=== PATIENT | male | born 1940 | race Caucasian/White ===

== ENCOUNTER 2023-10-13 13:32 | Inpatient (IN) ==
[2023-10-13 14:22] LABS: POC Calcium, Ionized 1.09 (1.16-1.32); POC Creatinine 1.4 (0.6-1.2); POC Potassium 3.8 (3.3-5.1)
[2023-10-13 15:24] LABS: Basophils # (Auto) 0.05 K/mcL (0.00-0.30); Basophils % (Auto) 0.7 % (0.0-2.0); Eosinophils # (Auto) 0.08 K/mcL (0.00-0.70); Eosinophils % (Auto) 1.1 % (0.0-7.0); Hematocrit 30.6 % (40.1-51.0); Hemoglobin 8.8 g/dL (13.7-17.5); Lymphocytes # (Auto) 1.28 K/mcL (1.50-4.80); Lymphocytes % (Auto) 18.3 % (15.5-49.0); Mean Cell Volume 89.2 fL (80.0-100.0); Mean Corpuscular HGB Conc 28.8 g/dL (31.0-36.0); Mean Platelet Volume 11.2 fL (8.8-12.5); Monocytes # (Auto) 0.52 K/mcL (0.10-0.90); Monocytes % (Auto) 7.4 % (1.0-12.0); Neutrophils % (Auto) 72.2 % (38.0-78.0); Platelet Count 249 K/mcL (140-440); RBC 3.43 M/mcL (4.63-6.08); Red Cell Distribution Width 16.6 % (11.5-14.5)
[2023-10-13] MEDS ORDERED: FUROSEMIDE 40 MG/4 ML VIAL IV ONE (16:11)
[2023-10-13] MEDS ORDERED: IPRATROPIUM/ALBUTEROL 3 ML AMPUL.NEB NEB ONE (16:11)
[2023-10-13] MEDS ORDERED: traMADol 50 MG TABLET PO PRN (17:33)
[2023-10-13] MEDS ORDERED: ONDANSETRON 4 MG/2 ML VIAL IV PRN (18:06)
[2023-10-13] MEDS ORDERED: traZODone HCL 50 MG TABLET PO PRN (18:06)
[2023-10-13] MEDS ORDERED: IPRATROPIUM/ALBUTEROL 3 ML AMPUL.NEB NEB PRN (18:06)
[2023-10-13] MEDS ORDERED: ACETAMINOPHEN 325 MG TABLET PO PRN (18:06)
[2023-10-13] MEDS ORDERED: REMDESIVIR 200 MG in 0.9 % SODIUM CHLORIDE 250 ML IV SCH (18:06)
[2023-10-13 19:35] LABS: Iron 24 ug/dL (61-157)
[2023-10-13 19:48] LABS: Ferritin 107.8 ng/mL (30.0-400.0)
[2023-10-13] MEDS: HEPARIN 5,000 UNIT/ML VIAL SQ SCH (22:07)
[2023-10-13] MEDS: ATORVASTATIN 40 MG TABLET PO SCH (22:08)
[2023-10-13] MEDS: MOMETASONE INH SCH (22:09)
[2023-10-13] MEDS: SENNOSIDES 1 TABLET PO SCH (22:09)
[2023-10-13] MEDS: DOCUSATE SODIUM 100 MG CAPSULE PO SCH (22:09)
[2023-10-13] MEDS: 0.9 % SODIUM CHLORIDE 10 ML SYRINGE IV SCH (22:12)
[2023-10-14 06:50] LABS: Basophils # (Auto) 0.04 K/mcL (0.00-0.30); Basophils % (Auto) 0.8 % (0.0-2.0); Eosinophils # (Auto) 0.12 K/mcL (0.00-0.70); Eosinophils % (Auto) 2.5 % (0.0-7.0); Hematocrit 25.6 % (40.1-51.0); Hemoglobin 7.3 g/dL (13.7-17.5); Lymphocytes # (Auto) 0.93 K/mcL (1.50-4.80); Mean Cell Volume 87.4 fL (80.0-100.0); Mean Corpuscular HGB Conc 28.5 g/dL (31.0-36.0); Mean Platelet Volume 11.4 fL (8.8-12.5); Monocytes # (Auto) 0.39 K/mcL (0.10-0.90); Neutrophils % (Auto) 69.5 % (38.0-78.0); Platelet Count 197 K/mcL (140-440); RBC 2.93 M/mcL (4.63-6.08); Red Cell Distribution Width 16.7 % (11.5-14.5); WBC 4.9 K/mcL (4.5-11.0)
[2023-10-14] MEDS: 0.9 % SODIUM CHLORIDE 10 ML SYRINGE IV SCH ×3 (07:13→21:27)
[2023-10-14] MEDS: LEVOTHYROXINE 50 MCG TABLET PO SCH (07:13)
[2023-10-14 07:18] LABS: ALT/SGPT 12 U/L (<40); AST/SGOT 25 U/L (<40); Albumin 2.7 gm/dL (3.2-5.2); Albumin/Globulin Ratio 0.8 (1.0-2.3); Alkaline Phosphatase 111 U/L (39-117); Bilirubin,Total 0.4 mg/dL (0.1-1.0); Blood Urea Nitrogen 28 mg/dL (8-23); Calcium 8.4 mg/dL (8.6-10.4); Carbon Dioxide 33 mmol/L (22-30); Chloride 103 mmol/L (96-108); Globulin 3.6 gm/dL (2.2-3.7); Glomerular Filtration Rate 50; Glucose 97 mg/dL (70-105)
[2023-10-14] MEDS: DEXAMETHASONE 4 MG TABLET PO SCH (08:54)
[2023-10-14] MEDS: METOPROLOL SUCCINATE 50 MG TAB.XL.24H PO SCH (08:55)
[2023-10-14] MEDS: DIGOXIN 125 MCG TABLET PO SCH (08:57)
[2023-10-14] MEDS: POTASSIUM CHLORIDE 20 MEQ TABLET PO SCH (08:57)
[2023-10-14] MEDS: CLOPIDOGREL 75 MG TABLET PO SCH (08:57)
[2023-10-14] MEDS: LISINOPRIL 5 MG TABLET PO SCH (08:57)
[2023-10-14] MEDS: DOCUSATE SODIUM 100 MG CAPSULE PO SCH ×2 (08:57→21:27)
[2023-10-14] MEDS: FUROSEMIDE 20 MG/2 ML VIAL IV SCH ×2 (08:58→16:49)
[2023-10-14] MEDS: MOMETASONE INH SCH ×2 (08:59→21:27)
[2023-10-14] MEDS: Tiotropium-Olodaterol [Stiolto Respimat] 2.5-2.5 INH SCH (08:59)
[2023-10-14] MEDS: HEPARIN 5,000 UNIT/ML VIAL SQ SCH ×2 (10:05→21:27)
[2023-10-14] MEDS ORDERED: IRON DEXTRAN 1,000 MG in 0.9 % SODIUM CHLORIDE 500 ML IV ONE (10:51)
[2023-10-14] MEDS: IRON SUCROSE COMPLEX 100 MG/5 ML VIAL IV SCH (11:51)
[2023-10-14] MEDS: REMDESIVIR 100 MG in 0.9 % SODIUM CHLORIDE 250 ML IV SCH (13:24)
[2023-10-14] MEDS: ATORVASTATIN 40 MG TABLET PO SCH (21:26)
[2023-10-14] MEDS: SENNOSIDES 1 TABLET PO SCH (21:27)
[2023-10-15] MEDS: 0.9 % SODIUM CHLORIDE 10 ML SYRINGE IV SCH ×2 (04:59→14:41)
[2023-10-15 07:48] LABS: Basophils # (Auto) 0.02 K/mcL (0.00-0.30); Basophils % (Auto) 0.3 % (0.0-2.0); Eosinophils # (Auto) 0 K/mcL (0.00-0.70); Eosinophils % (Auto) 0 % (0.0-7.0); Hematocrit 26.3 % (40.1-51.0); Hemoglobin 7.6 g/dL (13.7-17.5); Lymphocytes # (Auto) 0.79 K/mcL (1.50-4.80); Lymphocytes % (Auto) 12.3 % (15.5-49.0); Mean Cell Volume 87.4 fL (80.0-100.0); Mean Corpuscular HGB Conc 28.9 g/dL (31.0-36.0); Mean Platelet Volume 11.4 fL (8.8-12.5); Monocytes # (Auto) 0.55 K/mcL (0.10-0.90); Monocytes % (Auto) 8.6 % (1.0-12.0); Neutrophils % (Auto) 78.3 % (38.0-78.0); Platelet Count 204 K/mcL (140-440); RBC 3.01 M/mcL (4.63-6.08); Red Cell Distribution Width 16.9 % (11.5-14.5); WBC 6.4 K/mcL (4.5-11.0)
[2023-10-15] MEDS: POTASSIUM CHLORIDE 20 MEQ TABLET PO SCH (08:00)
[2023-10-15] MEDS: LEVOTHYROXINE 50 MCG TABLET PO SCH (08:00)
[2023-10-15] MEDS: FUROSEMIDE 20 MG/2 ML VIAL IV SCH (08:01)
[2023-10-15 08:05] LABS: ALT/SGPT 10 U/L (<40); AST/SGOT 22 U/L (<40); Albumin/Globulin Ratio 0.8 (1.0-2.3); Alkaline Phosphatase 109 U/L (39-117); Bilirubin,Total 0.5 mg/dL (0.1-1.0); Blood Urea Nitrogen 32 mg/dL (8-23); Calcium 8.5 mg/dL (8.6-10.4); Carbon Dioxide 32 mmol/L (22-30); Chloride 102 mmol/L (96-108); Globulin 3.7 gm/dL (2.2-3.7); Glomerular Filtration Rate 55; Glucose 94 mg/dL (70-105)
[2023-10-15] MEDS: LISINOPRIL 5 MG TABLET PO SCH (09:55)
[2023-10-15] MEDS: DIGOXIN 125 MCG TABLET PO SCH (09:55)
[2023-10-15] MEDS: DEXAMETHASONE 4 MG TABLET PO SCH (09:55)
[2023-10-15] MEDS: HEPARIN 5,000 UNIT/ML VIAL SQ SCH (09:56)
[2023-10-15] MEDS: CLOPIDOGREL 75 MG TABLET PO SCH (09:56)
[2023-10-15] MEDS: MOMETASONE INH SCH (09:56)
[2023-10-15] MEDS: METOPROLOL SUCCINATE 50 MG TAB.XL.24H PO SCH (09:56)
[2023-10-15] MEDS: Tiotropium-Olodaterol [Stiolto Respimat] 2.5-2.5 INH SCH (09:56)
[2023-10-15] MEDS: DOCUSATE SODIUM 100 MG CAPSULE PO SCH (09:56)
[2023-10-15] MEDS ORDERED: FLUZONE HD QS2023-24/PF 240 MCG/0.7 ML SYRINGE IM ONE (10:00)
[2023-10-15] MEDS: IRON SUCROSE COMPLEX 100 MG/5 ML VIAL IV SCH (10:15)
[2023-10-15] MEDS: REMDESIVIR 100 MG in 0.9 % SODIUM CHLORIDE 250 ML IV SCH (14:41)
[2023-10-16] MEDS ORDERED: FUROSEMIDE 40 MG TABLET PO SCH (09:00)
[2023-10-19] MEDS ORDERED: ERGOCALCIFEROL (VITAMIN D2) 50,000 UNIT CAPSULE PO SCH (09:00)
[2023-10-20] MEDS ORDERED: NON FORMULARY MEDICATION 1 DOSE MISCELL (Cholecalciferol (Vitamin D3) 1,250 mcg (50,000 un PO SCH (09:00)
== END 2023-10-15 15:55 | disposition home or self-care (01) | DRG 177 ==
LOC: ED 13:32 → MEDSUR 17:54
PROVIDERS: ADMIT Internal Medicine; ATTEND Internal Medicine